=== PATIENT | male | born 1980 | race African-American/Black ===

== ENCOUNTER 2016-10-13 07:52 | Emergency (ER) | payer OTHER ==
[2016-10-13 08:46] LABS: Troponin I Less than 0.010 ng/mL (< 0.028)
[2016-10-13 08:49] LABS: #Basophils 0.1 thou/uL (0.0-0.2); #Eosinphils 0.4 thou/uL (0.0-0.7); #Monocytes 0.5 thou/uL (0.11-0.59); #Neutrophils 2.4 thou/uL (1.40-6.50); %Basophils 2.2 % (0.0-1.0); %Eosinophils 7.3 % (0.0-10.0); %Lymphocytes 36.8 % (21.0-51.0); %Monocytes 9.1 % (0.0-10.0); Hematocrit 44.5 % (42.0-52.0); Red Blood Cell (RBC) Count 4.35 mill/uL (4.70-6.10); White Blood Cell (WBC) Count 5.4 thou/uL (4.8-10.8)
[2016-10-13 08:56] LABS: ALT (SGPT) 35 U/L (0-55); AST (SGOT) 41 U/L (5-34); Alkaline Phosphatase 72 U/L (40-150); Anion Gap 13 mmol/L (10-20); BUN (Urea Nitrogen) 11 mg/dL (8.9-20.6); Bilirubin, Total 0.6 mg/dL (0.2-1.2); Calc. Creatinine Clearance 0 mL/min (70-130); Calcium 8.4 mg/dL (7.8-10.44); Carbon Dioxide 21 mmol/L (22-29); Chloride 106 mmol/L (98-107); Estimated GFR-MDRD Greater than 90; Globulin 3.6 g/dL (2.4-3.5); Protein, Total 7.4 g/dL (6.0-8.3)
[2016-10-13] MEDS ORDERED: HYDROcodone/Acetaminophen 5/325 mg Tablet ONE (09:10)
--- NOTE | 2016-10-13 09:33 | RAD ---
SEMI UPRIGHT PORTABLE CHEST ONE VIEW: History: 36-year-old male with chest pain. FINDINGS: Monitor leads overlie the chest. Heart size is normal. The lungs are clear. IMPRESSION: No significant acute intrathoracic disease. Previously noted parenchymal changes and congestion see n on the 04-03-14 study have resolved. POS: [facility]
[2016-10-13 10:06] LABS: Anion Gap 11 mmol/L (10-20); BUN (Urea Nitrogen) 10 mg/dL (8.9-20.6); Calc. Creatinine Clearance 0 mL/min (70-130); Calcium 8.2 mg/dL (7.8-10.44); Carbon Dioxide 24 mmol/L (22-29); Chloride 107 mmol/L (98-107); Estimated GFR-MDRD Greater than 90
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
--- NOTE | 2016-10-13 10:37 | PICIS ---
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 Eran Freeman : 1980 M36 MedRec: [id number] AcctNum: [id number] Prepared: ThuOct 13, 2016 10:54 by Interface Page 10 of 12 pMD [facility] EMERGENCY RECORD n on the 04-03-14 study have resolved. POS: [facility] . (09:40 ALIM) LABORATORY: Cardiac Profile w/CKMB & TropI Collection DT: ThuOct 13, 2016 08:18, CKMB 1.1 ng/mL, Range (0-6.6), Troponin I Less than 0.010 ng/mL, Range (< 0.028), Reference Range , 0.00 - 0.028 ng/mL Negative 0.029 - 0.29 ng/mL , Indeterminate Greater or Equal to 0.3 ng/mL Strongly suggests DE , . (08:49 ALIM) CBC with Differential Collection DT: ThuOct 13, 2016 08:18, White Blood Cell (WBC) Count 5.4 thou/uL, Range (4.8-10.8), *Red Blood Cell (RBC) Count 4.35 - L mill/uL, Range (4.70-6.10), Hemoglobin 14.6 g/dL, Range (14.0-18.0), Hematocrit 44.5 %, Range (42.0-52.0), *Mean Corpuscular Volume 102.0 - H fl, Range (80.0-94.0), *Mean Corpuscular Hemoglobin 33.6 - H pg, Range (27.0-31.0), Mean Corpuscular HGB CONC 32.9 g/dL, Range (32.0-36.0), RBC Distribution Width 12.0 %, Range (11.5-14.5), Platelet Count 240 thou/uL, Range (130-400), Mean Platelet Volume 9.0 fL, Range (7.4-10.4), %Neutrophils 44.7 %, Range (42.0-75.0), %Lymphocytes 36.8 %, Range (21.0-51.0), %Monocytes 9.1 %, Range (0.0-10.0), %Eosinophils 7.3 %, Range (0.0-10.0), *%Basophils 2.2 - H %, Range (0.0-1.0), #Neutrophils 2.4 thou/uL, Range (1.40-6.50), #Lymphocytes 2.0 thou/uL, Range (1.20-3.40), #Monocytes 0.5 thou/uL, Range (0.11-0.59), #Eosinphils 0.4 thou/uL, Range (0.0-0.7), #Basophils 0.1 thou/uL, Range (0.0-0.2). (08:52 ALI) Comprehensive Metabolic Panel Collection DT: ThuOct 13, 2016 08:18, *Sodium 135 - L mmol/L, Range (136-145), *Potassium 5.4 - H mmol/L, Range (3.5-5.1), Chloride 106 mmol/L, Range (98-107), *Carbon Dioxide 21 - L mmol/L, Range (22-29), Anion Gap 13 mmol/L, Range (10-20), BUN (Urea Nitrogen) 11 mg/dL, Range (8.9-20.6), Creatinine 0.96 mg/dL, Range (0.7-1.3), Estimated GFR-MDRD Greater than 90 , Reference Range for Estimated GFR: Greater than 90, mL/min/1.73 m2 NOTE: The MDRD equation has not been validated for use, with the &a-1R&a+25V*p+0X*j0425H*c202B*c15G*c2P*p-0X&a-25V&a+1R Name: Eran Freeman : 1980 M36 MedRec: [id number] AcctNum: [id number] Prepared: ThuOct 13, 2016 10:54 by Interface Page 11 of 12 pMD [facility] EMERGENCY RECORD elderly (over 70 years of age), women, patients with, serious comorbid condition or persons with extremes of body size, muscle, mass, or nutritional status. , Glucose 97 mg/dL, Range (70-105), Calcium 8.4 mg/dL, Range (7.8-10.44), Bilirubin, Total 0.6 mg/dL, Range (0.2-1.2), Protein, Total 7.4 g/dL, Range (6.0-8.3), NOTE: Plasma values are generally 0.3 to 0.5 g/dL higher than serum values, due to the presence of fibrinogen. , Albumin 3.8 g/dL, Range (3.5-5.0), *Globulin 3.6 - H g/dL, Range (2.4-3.5), *Alb/Glob Ratio 1.1 - L g/dL, Range (1.2-2.2), Alkaline Phosphatase 72 U/L, Range (40-150), *AST (SGOT) 41 - H U/L, Range (5-34), ALT (SGPT) 35 U/L, Range (0-55). (09:00 ALIM) Basic Metabolic Panel Collection DT: ThuOct 13, 2016 09:48, Sodium 138 mmol/L, Range (136-145), Potassium 4.1 mmol/L, Range (3.5-5.1), Chloride 107 mmol/L, Range (98-107), Carbon Dioxide 24 mmol/L, Range (22-29), Anion Gap 11 mmol/L, Range (10-20), BUN (Urea Nitrogen) 10 mg/dL, Range (8.9-20.6), Creatinine 0.93 mg/dL, Range (0.7-1.3), Estimated GFR-MDRD Greater than 90 , Reference Range for Estimated GFR: Greater than 90, mL/min/1.73 m2 NOTE: The MDRD equation has not been validated for use, with the elderly (over 70 years of age), women, patients with, serious comorbid condition or persons with extremes of body size, muscle, mass, or nutritional status. , Glucose 99 mg/dL, Range (70-105), Calcium 8.2 mg/dL, Range (7.8-10.44). (10:09 CHERIE) Goldstein: CHERIE=MD Merritt, Jayjay HUERTAS=BRIAN Jacobs, Charley REYNOSO=BRIAN Escobar, Padmini &a-1R&a+25V*p+0X*x0235Y*c202B*c15G*c2P*p-0X&a-25V&a+1R Name: Lydia Eran Claritza : 1980 M36 MedRec: [id number] AcctNum: [id number] Prepared: ThuOct 13, 2016 10:54 by Interface Page 12 of 12 pMD MTDD
== END 2016-10-13 10:20 | disposition home or self-care (01) ==
LOC: NAV ERS 07:52
DX: R07.89 Other chest pain (principal); F31.9 Bipolar disorder, unspecified
CPT/HCPCS: 71010; 80053; 82553; 84484; 85025; 93005; 96360

== ENCOUNTER 2022-09-19 09:06 | Emergency (ER) | payer OTHER ==
[2022-09-19] MEDS ORDERED: Ondansetron PF 4 MG/2 ML Vial ONE ×2 (09:11→15:08)
[2022-09-19] MEDS ORDERED: levETIRAcetam 500 MG/5 ML VIAL ONE (09:22)
[2022-09-19] MEDS ORDERED: Sodium Chloride 0.9% 100 ML ONE (09:26)
[2022-09-19] MEDS ORDERED: Acetaminophen 500 MG TAB ONE (10:08)
[2022-09-19 11:00] LABS: Bilirubin Negative (Negative); Blood, Urine Small (Negative); Clarity Clear (Clear); Glucose, Urine (Dipstick) Negative (Negative); Ketone, Urine > or equal to 80 mg/dL (Negative); Leukocyte Negative (Negative); Nitrite Negative (Negative); Protein, Urine (Dipstick) 30 mg/dL (Neg-Trace); Urobilinogen 0.2 mg/dL (Less than 2); pH, Urine 5.5 (5.0-9.0)
[2022-09-19 11:05] LABS: Specific Gravity, Urine 1.019 (1.002-1.036)
[2022-09-19 11:15] LABS: RBC/HPF None Seen HPF (0-3); Squamous Epithelial 0-3 HPF (0-3); WBC/HPF None Seen HPF (0-3)
[2022-09-19 11:16] LABS: Bacteria/HPF None Seen HPF (None Seen)
[2022-09-19] MEDS ORDERED: Bacitracin 1 PK ONE (13:28)
[2022-09-19 14:04] LABS: #Basophils 0.1 thou/uL (0.0-0.2); #Lymphocytes 0.4 thou/uL (1.20-3.40); #Monocytes 0.5 thou/uL (0.11-0.59); #Neutrophils 12.4 thou/uL (1.40-6.50); %Basophils 0.5 % (0.0-1.0); %Lymphocytes 3.2 % (21.0-51.0); %Monocytes 3.8 % (0.0-10.0); %Neutrophils 92.6 % (42.0-75.0); Hemoglobin 15.7 g/dL (14.0-18.0); Mean Corpuscular HGB CONC 32.6 g/dL (32.0-36.0); Mean Corpuscular Hemoglobin 33.5 pg (27.0-31.0); Platelet Count 249 10x3/uL (130-400); RBC Distribution Width 12.4 % (11.5-14.5); Red Blood Cell (RBC) Count 4.69 mill/uL (4.70-6.10); White Blood Cell (WBC) Count 13.4 10x3/uL (4.8-10.8)
[2022-09-19 14:08] LABS: ALT (SGPT) 39 U/L (8-55); AST (SGOT) 30 U/L (5-34); Albumin 4.5 g/dL (3.5-5.0); Alkaline Phosphatase 73 U/L (40-110); Anion Gap 19 mmol/L (10-20); BUN (Urea Nitrogen) 10 mg/dL (8.9-20.6); Bilirubin, Total 0.9 mg/dL (0.2-1.2); Calc. Creatinine Clearance 0 mL/min (70-130); Calcium 9.2 mg/dL (7.8-10.44); Carbon Dioxide 18 mmol/L (22-29); Chloride 103 mmol/L (98-107); Estimated GFR 108; Globulin 3.4 g/dL (2.4-3.5); Glucose 94 mg/dL (70-105); Potassium 3.8 mmol/L (3.5-5.1); Protein, Total 7.9 g/dL (6.0-8.3); Sodium 136 mmol/L (136-145)
== END 2022-09-19 15:05 | disposition home or self-care (01) ==
LOC: NAV ERS 09:06
DX: S01.511A Laceration without foreign body of lip, initial encounter (principal); R56.9 Unspecified convulsions; F17.210 Nicotine dependence, cigarettes, uncomplicated; W19.XXXA Unspecified fall, initial encounter
CPT/HCPCS: 70450; 71045; 80053; 81003; 81015; 84484; 85025; 93005; 96361; 96365; 96375; 96376; J1953; J2405